=== PATIENT | male | born 1985 | race Hispanic/Latino ===

== ENCOUNTER 2024-06-30 01:12 | Emergency (ER) | payer BC ==
[~2024-06-30] VITALS: Ht 172.7 cm; Wt 99.8 kg
[2024-06-30 01:33] LABS: BASOPHILS # (AUTO) 0.02 K/uL (0.00-0.20); BASOPHILS % (AUTO) 0.2 % (0.0-5.0); EOSINOPHILS % (AUTO) 2.2 % (0.0-8.0); HEMATOCRIT 44.1 % (42-54); IMMATURE GRANULOCYTE ABSOLUTE 0.02 K/uL (0-1); LYMPHOCYTES # (AUTO) 2.3 K/uL (1.0-4.8); LYMPHOCYTES % (AUTO) 25.4 % (21.0-51.0); MEAN CORPUSCULAR HEMOGLOBIN 30.7 pg (27.0-33.0); MEAN CORPUSCULAR HGB CONC 34.5 g/dL (32.0-36.0); MEAN CORPUSCULAR VOLUME 89.1 fL (79-99); MONOCYTES # (AUTO) 0.6 K/uL (0.1-1.0); MONOCYTES % (AUTO) 6.2 % (3.0-13.0); NEUTROPHILS % (AUTO) 65.8 % (40.0-77.0); PLATELET COUNT (AUTO) 256 K/uL (130-400); RED BLOOD CELL COUNT(AUTO) 4.95 MIL/uL (4.50-6.20); RED CELL DISTRIBUTION WIDTH 11.9 % (11.0-15.5); WHITE BLOOD COUNT (AUTO) 9.1 K/uL (4.8-10.8)
[2024-06-30] MEDS: ondanSETRON 4MG INJ IVP ONE (01:36)
--- NOTE | 2024-06-30 01:36 | NUR ---
PT CONNECTED TO BP AND PULSE OX
[2024-06-30] MEDS: hydroMORPHone 1 MG INJ IVP ONE (01:37)
[2024-06-30] MEDS: 0.9%NACL 1000ML 1,000 ML IV ONE (01:37)
--- NOTE | 2024-06-30 01:37 | NUR ---
PT PLACED ON 2 LPM NC DUE TO HYDROMORPHONE ADMINISTRATION
[2024-06-30 01:44] LABS: CREATININE 1.4 mg/dL (0.5-1.3); MAGNESIUM 1.6 mg/dL (1.80-2.40); POTASSIUM 3.7 mmol/L (3.5-5.1)
[2024-06-30] MEDS ORDERED: ketOROlac 15MG/ML VIAL (15MG/ML) IM ONE (02:00)
--- NOTE | 2024-06-30 02:00 | NUR ---
PT TO CT AT THIS TIME
[2024-06-30] MEDS: ketOROlac 15MG/ML VIAL (15MG/ML) IV ONE (02:09)
--- NOTE | 2024-06-30 02:54 | ERN ---
General Chief Complaint: Abdominal Pain Stated Complaint: ABD PAIN Time Seen by MD: 01:18 Time Seen by Midlevel: 01:18 Source: patient History of Present Illness Initial Comments This is a 39-year-old male with no significant past medical history presenting to the emergency department with a sudden onset right lower quadrant abdominal pain that started approximately 1 hour prior to arrival. The patient does report having history of kidney stones but states this pain is significantly much worse. He reports three episodes of vomiting prior to arrival. Denies any fever, chills, or any other symptoms at this time. Allergies: Coded Allergies: No Known Allergies (Unverified Allergy, Unknown, 06/30/24) Past Medical History Past Medical History: No Pertinent History Past Surgical History: None ROS Dictation CONSTITUTIONAL: Negative except for HPI HEAD/FACE: Negative except for HPI EENT: Negative except for HPI RESPIRATORY: Negative except for HPI GASTROINTESTINAL/ABDOMINAL: Negative except for HPI GENITOURINARY: Negative except for HPI MUSCULOSKELETAL: Negative except for HPI INTEGUMENTARY: Negative except for HPI NEUROLOGICAL/PSYCH: Negative except for HPI HEMATOLOGIC/LYMPHATIC: Negative except for HPI All Systems Negative, Except as noted above. 13 point review of systems assessed and all negative except for above. Physical Exam Physical Exam Dictation Vital Signs reviewed General Appearance: Alert, oriented x 3, moderate distress, well developed, nourished. Head and Face: non-traumatic. Eyes: PERRL, pink conjunctivas, eyelid no trauma, anterior chamber with arcus senilis. Ears: Pinnas intact and no signs of trauma or erythema ear canals clear and no discharge TM no erythema Nose: No discharge, no bleeding. Oropharynx: Mouth normal, tongue pink, pharynx clear,no erythema, tonsils no exudates, no abscesses noted, mucous membrane moist Neck: Supple, non-tender, no thyromegaly, no masses, no JVD, no bruits Breast:Deferred Chest:No tenderness, no crepitus, no paradoxical movement, no retractions Lungs:Clear, well-ventilated, symmetric, no rales, no wheezing, no rhonchi, no stridor, good breath sounds bilaterally Heart: Regular rate, regular rhythm, no murmur, no gallops Vascular: no peripheral edema, Abdomen: Soft, positive bowel sounds, nondistended, no guarding, Right CVA tenderness, no rebound, no masses no hepatomegaly, no splenomegaly, no Ocampo's sign, no hernias. Rectal: Deferred Genital: Deferred Neurological: Normal speech, motor function intact, sensory function intact Musculoskeletal: Neck nontender, full range of motion, back nontender, full range of motion, Extremities: nontender, full range of motion Skin: Color pink, dry, no turgor, no rash, no lacerations, no abrasions, no contusions. Lymphatic: Deferred Results Laboratory and Microbiology Lab and Micro Result Laboratory Tests Test 06/30/24 01:27 06/30/24 03:22 White Blood Count 9.1 K/uL (4.8-10.8) Red Blood Count 4.95 MIL/uL (4.50-6.20) Hemoglobin 15.2 g/dL (14.0-18.0) Hematocrit 44.1 % (42-54) Mean Corpuscular Volume 89.1 fL (79-99) Mean Corpuscular Hemoglobin 30.7 pg (27.0-33.0) Mean Corpuscular Hemoglobin Concent 34.5 g/dL (32.0-36.0) Red Cell Distribution Width 11.9 % (11.0-15.5) Platelet Count 256 K/uL (130-400) Mean Platelet Volume 8.7 fL (7.5-10.5) Immature Granulocyte % (Auto) 0.2 % (0-1) Neutrophils (%) (Auto) 65.8 % (40.0-77.0) Lymphocytes (%) (Auto) 25.4 % (21.0-51.0) Monocytes (%) (Auto) 6.2 % (3.0-13.0) Eosinophils (%) (Auto) 2.2 % (0.0-8.0) Basophils (%) (Auto) 0.2 % (0.0-5.0) Neutrophils # (Auto) 6.0 K/uL (1.8-7.7) Lymphocytes # (Auto) 2.3 K/uL (1.0-4.8) Monocytes # (Auto) 0.6 K/uL (0.1-1.0) Eosinophils # (Auto) 0.20 K/uL (0.00-0.70) Basophils # (Auto) 0.02 K/uL (0.00-0.20) Absolute Immature Granulocyte (auto 0.02 K/uL (0-1) Nucleated Red Blood Cells 0.0 % (0.0-0.19) Sodium Level 136 mmol/L (136-145) Potassium Level 3.7 mmol/L (3.5-5.1) Chloride Level 98 mmol/L (101-111) L Carbon Dioxide Level 32 mmol/L (21-32) Blood Urea Nitrogen 19 mg/dL (7-18) H Creatinine 1.4 mg/dL (0.5-1.3) H Glomerular Filtration Rate Calc 65 mL/min (>90) Random Glucose 280 mg/dL (70-105) H Lactic Acid Level 2.3 mmol/L (0.8-2.5) Total Calcium 9.0 mg/dL (8.5-10.1) Magnesium Level 1.60 mg/dL (1.80-2.40) L Urine Color LIGHT-YELLOW (YELLOW) Urine Appearance CLEAR (CLEAR) Urine pH 6.0 (5.0-8.0) Urine Specific [place] 1.021 (1.001-1.031) Urine Protein 20 mg/dL (NEGATIVE) H Urine Glucose (UA) >=1000 mg/dL (NEGATIVE) H Urine Ketones NEGATIVE mg/dL (NEGATIVE) Urine Occult Blood +- (TRACE) (NEGATIVE) H Urine Nitrate NEGATIVE (NEGATIVE) Urine Bilirubin NEGATIVE mg/dL (NEGATIVE) Urine Urobilinogen 0.2 mg/dL (0.2-1.0) Urine Leukocyte Esterase 250 Dianna/uL (NEGATIVE) H Urine RBC 6-10 /HPF (0-1) H Urine WBC 6-10 /HPF (0-1) H Urine Squamous Epithelial Cells RARE /HPF (0-2) Urine Bacteria FEW /HPF (None Seen) Labs Reviewed?: Yes MDM MDM: 39-year-old male presenting to the ER with sudden onset of right lower quadrant abdominal pain. On initial evaluation the patient appears to be in moderate amount of distress. He has right CVA tenderness. Given the patient's significant amount of right flank pain the patient was given 1 mg Dilaudid IV and started on IV fluids. How ever, pain did not improve after 20 minutes. The patient was then given 15 mg of Toradol and sent to CAT scan for further evaluation. His CBC shows no leukocytosis, no anemia, no thrombocytopenia. Chemistries reveal a slightly elevated creatinine at 1.4. CT scan of the abdomen/pelvis reveals a stone in the urinary bladder however CT scan report has not resulted yet. After the administration of Toradol the patient feels significantly improved. Differential diagnosis: Acute appendicitis, diverticulitis, ureter stone There are no social concerns with this patient. Prescription drug management Prescriptions will include: Medical management and examination interpretation discussions were had by me with other qualified healthcare professionals as indicated for the patient's care. CT scan shows that there is a 4 mm stone on the right ureteral vesicular junction with mild hydro ureteral nephrosis and mild perinephric stranding. Who have no evidence of an infection at this point but patient should follow up with Urology quickly. ED Course Orders Procedure Category Date Status Time Cbc With Differential LAB 06/30/24 Complete 01:18 Basic Metabolic Panel LAB 06/30/24 Complete 01:18 Magnesium LAB 06/30/24 Complete 01:18 Urinalysis Profile LAB 06/30/24 Complete 01:18 Lactic Acid LAB 06/30/24 Complete 01:18 Ondansetron 4mg Inj PHA 06/30/24 Complete (Zofran 4mg Inj) 01:30 Hydromorphone 1 Mg PHA 06/30/24 Complete Inj (Dilaudid 1mg Inj 01:30 Ct Abdomen/Pelvis W/O CT 06/30/24 Taken Contrast 01:18 0.9%Nacl 1000ml (Ns PHA 06/30/24 Complete 1000ml) 01:30 Ketorolac PHA 06/30/24 Complete Tromethamine 15mg/Ml 02:00 Ketorolac PHA 06/30/24 Complete Tromethamine 15mg/Ml 02:30 Culture Urine LEXIE 06/30/24 In Process 03:39 Current Medications Medications (Trade) Dose Ordered Sig/Matias Route PRN Reason Start Time Stop Time Status Last Admin Dose Admin Hydromorphone HCl (DiLAUDid 1MG INJ) 1 mg ONCE ONCE IVP 06/30/24 01:30 06/30/24 01:31 DC 06/30/24 01:37 Ketorolac Tromethamine (toRADol) 15 mg ONCE ONCE IM 06/30/24 02:00 06/30/24 02:00 DC Ketorolac Tromethamine (toRADol) 15 mg ONCE ONCE IV 06/30/24 02:30 06/30/24 02:31 DC 06/30/24 02:09 Ondansetron HCl (zoFRAN 4MG INJ) 4 mg ONCE ONCE IVP 06/30/24 01:30 06/30/24 01:31 DC 06/30/24 01:36 Sodium Chloride 1,000 ml @ 0 mls/hr ONCE ONCE IV 06/30/24 01:30 06/30/24 01:31 DC 06/30/24 01:37 Vital Signs Date Time Temp Pulse Resp B/P (MAP) Pulse Ox O2 Delivery O2 Flow Rate FiO2 06/30/24 03:20 98.1 93 17 143/95 98 Room Air* 0 21 06/30/24 02:30 98.1 90 17 144/90 97 Room Air* 0 06/30/24 01:40 98.1 86 17 148/88 99 Room Air* 0 06/30/24 01:13 99.9 99 20 190/103 97 Room Air DX & DISP Disposition: Discharge Departure Impression: Primary Impression: Nephrolithiasis Additional Impression: Hydronephrosis concurrent with and due to calculi of kidney and ureter Condition: Stable Scripts Ketorolac Tromethamine (Toradol) 10 Mg Tab 1 TAB PO TID for pain for 5 Days, #15 TAB 0 Refills Prov: ROBERTO CARLOS DRIVER MD 06/30/24 Additional Instructions: Patient to the emergency room if you start to have fevers and chills or low blood pressure. In the meantime please see your urologist so that that is stone can be removed as quickly as possible. Referrals: SELF,REFERRAL (PCP) SASHA SCHUMACHER Jun 30, 2024 02:54 ROBERTO CARLOS DRIVER MD Jun 30, 2024 04:40
[2024-06-30 03:38] LABS: APPEARANCE,URINE CLEAR (CLEAR); BILIRUBIN,URINE NEGATIVE (NEGATIVE); COLOR,URINE LIGHT-YELLOW (YELLOW); GLUCOSE, URINE (UA) >=1000 mg/dL (NEGATIVE); KETONES,URINE NEGATIVE (NEGATIVE); LEUKOCYTE ESTERASE ,URINE 250 Leu/uL (NEGATIVE); NITRATE,URINE NEGATIVE (NEGATIVE); PROTEIN,URINE 20 mg/dL (NEGATIVE); UROBILINOGEN,URINE 0.2 mg/dL (0.2-1.0)
[2024-06-30 03:39] LABS: ADD UA MICROSCOPIC YES
[2024-06-30 03:44] LABS: BACTERIA,URINE FEW /HPF (None Seen); MUCUS,URINE RARE LPF (None Seen); SQUAMOUS EPITHELIAL CELL,UR RARE /HPF (0-2)
[2024-06-30] MEDS ORDERED: KETO10 PO (04:39)
[2024-06-30 04:59] VITALS: BP 121/63; PULSE 90; RESP 15; TEMP 97.9; O2SAT 98
[2024-06-30] MEDS: ketOROlac 30MG VIAL (30MG/ML) IVP ONE (04:59)
--- NOTE | 2024-06-30 08:59 | HMCIMG ---
CT ABDOMEN/PELVIS W/O CONTRAST HISTORY: No additional history given. COMPARISON: None TECHNIQUE: Multiple sequential axial images of the abdomen and pelvis were obtained from the dome of the diaphragm through symphysis pubis. Patient was not given contrast through intravenous route. Oral contrast was not given. FINDINGS: No pleural effusion is seen bilaterally. There is no evidence of parenchymal disease or pulmonary nodule of the visualized lower lungs. Degenerative changes of the thoracolumbar spine are present. The heart is not enlarged. Liver is enlarged with fatty changes measuring 21 cm. The liver, spleen, adrenal glands and pancreas are unremarkable. No hydronephrosis is seen on the left. There is right hydronephrosis and right hydroureter with 5 mm renal stone in the right UV junction. 3 mm left renal pelvic stone is seen Fecal material is seen in the colon. There are normal size retroperitoneal and mesenteric lymph nodes. No ascites is seen. No CT evidence of acute appendicitis is seen. There is diverticulosis. Pelvic sidewalls are symmetric bilaterally. Bladder is poorly distended IMPRESSION: 1. No hydronephrosis is seen on the left. There is right hydronephrosis and right hydroureter with 5 mm renal stone in the right UV junction. 3 mm left renal pelvic stone is seen Fecal material is seen in the colon. CT was performed with one or more following dose reduction techniques: automated exposure control, adjustment of the mA and kv according to patient's size, or use of a iterative reconstruction technique.
== END 2024-06-30 05:06 | disposition home or self-care (01) ==
LOC: EDH 01:12
DX: N13.2 Hydronephrosis with renal and ureteral calculous obstruction (principal)
CPT/HCPCS: 99284; 74176; 96374; 96375; 83735; 80048; 85025; 87086; 83605; 81001; 36415; 96376; J1885 ×2; J1171; J7030; J2405